=== PATIENT | male | born 1955 | race Caucasian/White ===

== ENCOUNTER → 2018-08-15 10:00 | Outpatient (CLI) | payer BC, SELFPAY | PROVIDERS: PCP Internal Medicine; Visit Provider Internal Medicine | DX: I25.10 Atherosclerotic heart disease of native coronary artery without angina pectoris (principal); Z95.5 Presence of coronary angioplasty implant and graft | CPT/HCPCS: 93005 ==

== ENCOUNTER → 2018-08-17 08:32 | Outpatient (CLI) | payer SELFPAY | PROVIDERS: PCP Internal Medicine; Visit Provider Internal Medicine | DX: Z02.4 Encounter for examination for driving license (principal); Z86.79 Personal history of other diseases of the circulatory system | CPT/HCPCS: 93017 ==

== ENCOUNTER → 2018-08-21 15:08 | Outpatient (CLI) | payer BC, SELFPAY | PROVIDERS: PCP Internal Medicine; Visit Provider Internal Medicine | DX: R06.83 Snoring (principal); G47.10 Hypersomnia, unspecified | CPT/HCPCS: 95806 ==